=== PATIENT | male | born 1945 | race Caucasian/White ===

== ENCOUNTER → 2024-02-14 06:59 | Outpatient (REF) | payer MEDICARE, OTHER, SELFPAY | LOC: RAD 06:59 | PROVIDERS: ATTENDING PHYSICIAN Internal Medicine Infectious Disease; FAMILY PHYSICIAN Family Medicine Sports Medicine | DX: L02.91 Cutaneous abscess, unspecified (principal) | CPT/HCPCS: 74176 ==

== ENCOUNTER 2024-02-14 07:59 | Outpatient (RCR) | payer MEDICARE, OTHER, SELFPAY ==
[2024-01-17 10:00] VITALS: BP 148/71
[2024-01-17] MEDS: INVANZ 60 MG IV (10:45)
[2024-01-17 10:48] LABS: % Basophils 0.4 % (0-2); % Eosinophils 2.5 % (0-6); % Immature Granulocytes 0.6 % (0-0.5); % Monocytes 6.9 % (1.7-9.3); % Neutrophils 67.6 % (42.2-75.2); Absolute Eosinophils 0.2 10^3/uL (0-0.7); Absolute Immature Granulocytes 0.1 10^3/uL (0-0.05); Absolute Lymphocytes 1.8 10^3/uL (1.2-3.4); Absolute Monocytes 0.6 10^3/uL (0.1-0.6); Absolute Neutrophils 5.6 10^3/uL (1.4-6.5); Hematocrit 28.2 % (39.0-52.0); Hemoglobin 9.2 g/dL (13.0-18.0); Mean Corp Hgb Conc. 32.6 g/dL (33.0-37.0); Mean Corpuscular Hgb 29.9 pg (27.0-31.0); Mean Corpuscular Volume 91.6 fL (80.0-94.0); Mean Platelet Volume 8.9 fL (7.4-10.4); Platelet Count 283 10^3/uL (130-400); Red Blood Cell Count 3.08 10^6/uL (4.70-6.10); Red Cell Dist. Width 14.1 % (11.5-14.5); White Blood Cell Count 8.3 10^3/uL (4.8-10.8)
[2024-01-17] MEDS: CUBICIN 115 MG IV (11:26)
[2024-01-17 11:55] LABS: ALT (SGPT) 29 U/L (0-50); AST (SGOT) 45 U/L (17-59); Albumin 3.5 g/dl (3.5-5.0); Alkaline Phosphatase 117 U/L (38-126); Blood Urea Nitrogen 13 mg/dl (9-20); Carbon Dioxide 24 mmol/L (22-30); Chloride 103 mmol/L (98-107); Creatine Phosphokinase 98 U/L (55-170); Glucose 104 mg/dl (70-99); Potassium 4.1 mmol/L (3.5-5.1); Sodium 135 mmol/L (135-145); Total Bilirubin 0.5 mg/dl (0.2-1.3); eGFR > 60.00
[2024-01-18] MEDS: CUBICIN 115 MG IV (07:55)
[2024-01-18 08:03] VITALS: BP 137/75
[2024-01-18] MEDS: INVANZ 60 MG IV (08:35)
[2024-01-19] MEDS: INVANZ 60 MG IV (08:50)
[2024-01-19 08:56] VITALS: BP 143/79
[2024-01-19] MEDS: CUBICIN 115 MG IV (09:29)
[2024-01-20] MEDS: INVANZ 60 MG IV (07:37)
[2024-01-20 07:42] VITALS: BP 127/75
[2024-01-20] MEDS: CUBICIN 115 MG IV (08:10)
[2024-01-21] MEDS: CUBICIN 115 MG IV (07:23)
[2024-01-21] MEDS: INVANZ 60 MG IV (08:30)
[2024-01-22] MEDS: INVANZ 60 MG IV (11:08)
[2024-01-22 11:14] VITALS: BP 134/72
[2024-01-22] MEDS: CUBICIN 115 MG IV (11:45)
[2024-01-23] MEDS: INVANZ 60 MG IV (08:02)
[2024-01-23 08:07] VITALS: BP 136/84
[2024-01-23] MEDS: CUBICIN 115 MG IV (08:41)
[2024-01-24] MEDS: INVANZ 60 MG IV (09:12)
[2024-01-24 09:16] VITALS: BP 132/77
[2024-01-24 09:21] LABS: % Eosinophils 3.5 % (0-6); % Immature Granulocytes 0.4 % (0-0.5); % Monocytes 7.8 % (1.7-9.3); % Neutrophils 66.3 % (42.2-75.2); Absolute Basophils 0.1 10^3/uL (0-0.2); Absolute Eosinophils 0.3 10^3/uL (0-0.7); Absolute Lymphocytes 1.5 10^3/uL (1.2-3.4); Absolute Monocytes 0.6 10^3/uL (0.1-0.6); Absolute Neutrophils 4.7 10^3/uL (1.4-6.5); Hematocrit 28.8 % (39.0-52.0); Hemoglobin 9.4 g/dL (13.0-18.0); Mean Corp Hgb Conc. 32.6 g/dL (33.0-37.0); Mean Corpuscular Hgb 28.8 pg (27.0-31.0); Mean Corpuscular Volume 88.3 fL (80.0-94.0); Mean Platelet Volume 8.8 fL (7.4-10.4); Nucleated Red Blood Cells % 0 % (-); Platelet Count 234 10^3/uL (130-400); Red Blood Cell Count 3.26 10^6/uL (4.70-6.10); Red Cell Dist. Width 14.2 % (11.5-14.5); White Blood Cell Count 7.1 10^3/uL (4.8-10.8)
[2024-01-24 09:35] LABS: ALT (SGPT) 29 U/L (0-50); AST (SGOT) 63 U/L (17-59); Albumin 3.6 g/dl (3.5-5.0); Alkaline Phosphatase 107 U/L (38-126); Blood Urea Nitrogen 11 mg/dl (9-20); Calcium 9.4 mg/dl (8.4-10.2); Carbon Dioxide 22 mmol/L (22-30); Chloride 105 mmol/L (98-107); Glucose 132 mg/dl (70-99); Potassium 4.2 mmol/L (3.5-5.1); Sodium 138 mmol/L (135-145); Total Bilirubin 0.3 mg/dl (0.2-1.3); Total Protein 7.7 g/dl (6.3-8.2); eGFR > 60.00
[2024-01-24] MEDS: CUBICIN 115 MG IV (09:50)
[2024-01-24 10:11] LABS: Creatine Phosphokinase 185 U/L (55-170)
--- NOTE | 2024-01-24 14:06 | PTCARENOTE ---
Addendum entered by Mena Quintero RN 01/25/24 11:54:
Received call back from Dr. Strauss, agrees with pharmacist evaluation of labs and will continue with antibiotic therapy as directed, weekly labs as ordered.
Addendum entered by Mena Quintero RN 01/25/24 11:26:
1100-Three phone call placed to Dr. Strauss following up on Creatine Kinase level of 185 from 01/24/24. Pharmacist Jake Rossi evaluated lab values , in absence of physician response feels appropriate to proceed with IV antibiotic therapy today.
Pt has less fatigue today, will continue to monitor patient daily for any changes.
Original Note:
1045-CPK level elevated at 185, results called to Dr. Strauss at [facility] by pharmacist Kian Elise. Lab results faxed to office as well.
[2024-01-25 08:46] VITALS: BP 150/88
[2024-01-25] MEDS: INVANZ 60 MG IV (11:15)
[2024-01-25] MEDS: CUBICIN 115 MG IV (11:51)
[2024-01-26] MEDS: INVANZ 60 MG IV (08:42)
[2024-01-26 08:50] VITALS: BP 135/77
[2024-01-26] MEDS: CUBICIN 115 MG IV (09:25)
[2024-01-27 07:28] VITALS: BP 136/85
[2024-01-27] MEDS: CUBICIN 115 MG IV (07:31)
[2024-01-27] MEDS: INVANZ 60 MG IV (08:43)
[2024-01-28 07:45] VITALS: BP 151/77
[2024-01-28] MEDS: INVANZ 60 MG IV (07:46)
[2024-01-28] MEDS: CUBICIN 115 MG IV (08:17)
[2024-01-29 08:30] VITALS: BP 123/79
[2024-01-29] MEDS: INVANZ 60 MG IV (08:53)
[2024-01-29] MEDS: CUBICIN 115 MG IV (09:33)
[2024-01-30] MEDS: INVANZ 60 MG IV (08:57)
[2024-01-30] MEDS: CUBICIN 115 MG IV (09:29)
[2024-01-30 09:52] VITALS: BP 132/91
[2024-01-30 09:57] VITALS: BP 144/80
[2024-01-31 08:58] LABS: % Basophils 0.7 % (0-2); % Eosinophils 5.6 % (0-6); % Immature Granulocytes 0.4 % (0-0.5); % Lymphocytes 25.6 % (20.5-51.1); % Monocytes 8.6 % (1.7-9.3); % Neutrophils 59.1 % (42.2-75.2); Absolute Eosinophils 0.3 10^3/uL (0-0.7); Absolute Lymphocytes 1.4 10^3/uL (1.2-3.4); Absolute Monocytes 0.5 10^3/uL (0.1-0.6); Absolute Neutrophils 3.3 10^3/uL (1.4-6.5); Hematocrit 31.5 % (39.0-52.0); Hemoglobin 10.5 g/dL (13.0-18.0); Mean Corp Hgb Conc. 33.3 g/dL (33.0-37.0); Mean Corpuscular Hgb 29.5 pg (27.0-31.0); Mean Corpuscular Volume 88.5 fL (80.0-94.0); Mean Platelet Volume 8.6 fL (7.4-10.4); Platelet Count 220 10^3/uL (130-400); Red Blood Cell Count 3.56 10^6/uL (4.70-6.10); White Blood Cell Count 5.6 10^3/uL (4.8-10.8)
[2024-01-31 09:02] VITALS: BP 154/97
[2024-01-31 10:07] LABS: ALT (SGPT) 26 U/L (0-50); AST (SGOT) 45 U/L (17-59); Albumin 3.9 g/dl (3.5-5.0); Alkaline Phosphatase 110 U/L (38-126); Blood Urea Nitrogen 14 mg/dl (9-20); Calcium 9.6 mg/dl (8.4-10.2); Carbon Dioxide 25 mmol/L (22-30); Chloride 105 mmol/L (98-107); Creatine Phosphokinase 66 U/L (55-170); Glucose 129 mg/dl (70-99); Potassium 4.1 mmol/L (3.5-5.1); Sodium 139 mmol/L (135-145); Total Bilirubin 0.5 mg/dl (0.2-1.3); Total Protein 7.8 g/dl (6.3-8.2); eGFR > 60.00
[2024-01-31] MEDS: INVANZ 60 MG IV (10:25)
[2024-01-31] MEDS: CUBICIN 115 MG IV (11:06)
[2024-01-31 11:47] VITALS: BP 162/95
[2024-02-01] MEDS: INVANZ 60 MG IV (08:47)
[2024-02-01 09:04] VITALS: BP 138/79
[2024-02-01] MEDS: CUBICIN 115 MG IV (09:26)
[2024-02-02 10:03] VITALS: BP 136/76
[2024-02-02] MEDS: INVANZ 60 MG IV (10:17)
[2024-02-02] MEDS: CUBICIN 115 MG IV (10:53)
[2024-02-03 07:29] VITALS: BP 129/73
[2024-02-03] MEDS: CUBICIN 115 MG IV (07:31)
[2024-02-03] MEDS: INVANZ 60 MG IV (08:07)
[2024-02-04 07:42] VITALS: BP 149/85
[2024-02-04] MEDS: CUBICIN 115 MG IV (07:48)
[2024-02-04] MEDS: INVANZ 60 MG IV (08:07)
[2024-02-05 08:40] VITALS: BP 138/75
[2024-02-05] MEDS: INVANZ 60 MG IV (08:53)
[2024-02-05] MEDS: CUBICIN 115 MG IV (09:28)
[2024-02-06] MEDS: INVANZ 60 MG IV (08:52)
[2024-02-06 08:55] VITALS: BP 149/85
[2024-02-06] MEDS: CUBICIN 115 MG IV (09:30)
[2024-02-07 08:40] VITALS: BP 137/83
[2024-02-07 08:43] LABS: % Eosinophils 7.4 % (0-6); % Immature Granulocytes 0.2 % (0-0.5); % Lymphocytes 28.4 % (20.5-51.1); % Monocytes 8.2 % (1.7-9.3); % Neutrophils 54.8 % (42.2-75.2); Absolute Basophils 0.1 10^3/uL (0-0.2); Absolute Eosinophils 0.4 10^3/uL (0-0.7); Absolute Lymphocytes 1.7 10^3/uL (1.2-3.4); Absolute Monocytes 0.5 10^3/uL (0.1-0.6); Absolute Neutrophils 3.2 10^3/uL (1.4-6.5); Hematocrit 31.7 % (39.0-52.0); Hemoglobin 10.7 g/dL (13.0-18.0); Mean Corp Hgb Conc. 33.8 g/dL (33.0-37.0); Mean Corpuscular Hgb 29.6 pg (27.0-31.0); Mean Corpuscular Volume 87.8 fL (80.0-94.0); Mean Platelet Volume 8.5 fL (7.4-10.4); Platelet Count 225 10^3/uL (130-400); Red Blood Cell Count 3.61 10^6/uL (4.70-6.10); Red Cell Dist. Width 14.2 % (11.5-14.5); White Blood Cell Count 5.8 10^3/uL (4.8-10.8)
[2024-02-07] MEDS: INVANZ 60 MG IV (08:58)
[2024-02-07 09:51] LABS: ALT (SGPT) 27 U/L (0-50); AST (SGOT) 48 U/L (17-59); Albumin 3.8 g/dl (3.5-5.0); Alkaline Phosphatase 105 U/L (38-126); Blood Urea Nitrogen 13 mg/dl (9-20); Calcium 9.5 mg/dl (8.4-10.2); Carbon Dioxide 22 mmol/L (22-30); Chloride 103 mmol/L (98-107); Glucose 132 mg/dl (70-99); Potassium 4.2 mmol/L (3.5-5.1); Sodium 138 mmol/L (135-145); Total Bilirubin 0.2 mg/dl (0.2-1.3); Total Protein 7.6 g/dl (6.3-8.2); eGFR > 60.00
[2024-02-07 09:53] LABS: Creatine Phosphokinase 73 U/L (55-170)
[2024-02-07] MEDS: CUBICIN 115 MG IV (10:18)
[2024-02-08] MEDS: INVANZ 60 MG IV (11:49)
[2024-02-08] MEDS: CUBICIN 115 MG IV (12:26)
[2024-02-08 12:37] VITALS: BP 135/70
[2024-02-09] MEDS: INVANZ 60 MG IV (08:47)
[2024-02-09 08:52] VITALS: BP 140/80
[2024-02-09] MEDS: CUBICIN 115 MG IV (09:24)
[2024-02-10 07:45] VITALS: BP 133/82
[2024-02-10] MEDS: CUBICIN 115 MG IV (07:50)
[2024-02-10] MEDS: INVANZ 60 MG IV (08:29)
[2024-02-10 09:05] VITALS: BP 144/83
[2024-02-11 07:30] VITALS: BP 128/74
[2024-02-11] MEDS: CUBICIN 115 MG IV (07:31)
[2024-02-11] MEDS: INVANZ 60 MG IV (08:11)
[2024-02-12] MEDS: INVANZ 60 MG IV (08:56)
[2024-02-12 09:00] VITALS: BP 152/84
[2024-02-12] MEDS: CUBICIN 115 MG IV (09:32)
[2024-02-13] MEDS: INVANZ 60 MG IV (09:12)
[2024-02-13 09:23] VITALS: BP 149/79
[2024-02-13] MEDS: CUBICIN 115 MG IV (09:52)
[2024-02-14 08:15] VITALS: BP 158/84
[2024-02-14 08:22] LABS: % Basophils 0.5 % (0-2); % Eosinophils 5.2 % (0-6); % Immature Granulocytes 0.3 % (0-0.5); % Lymphocytes 27.7 % (20.5-51.1); % Monocytes 8.3 % (1.7-9.3); Absolute Eosinophils 0.3 10^3/uL (0-0.7); Absolute Lymphocytes 1.6 10^3/uL (1.2-3.4); Absolute Monocytes 0.5 10^3/uL (0.1-0.6); Absolute Neutrophils 3.3 10^3/uL (1.4-6.5); Hematocrit 32.1 % (39.0-52.0); Mean Corp Hgb Conc. 34.3 g/dL (33.0-37.0); Mean Corpuscular Volume 87.5 fL (80.0-94.0); Mean Platelet Volume 8.8 fL (7.4-10.4); Platelet Count 192 10^3/uL (130-400); Red Blood Cell Count 3.67 10^6/uL (4.70-6.10); White Blood Cell Count 5.8 10^3/uL (4.8-10.8)
[2024-02-14 09:33] LABS: ALT (SGPT) 26 U/L (0-50); AST (SGOT) 42 U/L (17-59); Alkaline Phosphatase 104 U/L (38-126); Blood Urea Nitrogen 13 mg/dl (9-20); Calcium 9.6 mg/dl (8.4-10.2); Carbon Dioxide 24 mmol/L (22-30); Chloride 104 mmol/L (98-107); Glucose 109 mg/dl (70-99); Potassium 4.1 mmol/L (3.5-5.1); Sodium 137 mmol/L (135-145); Total Bilirubin 0.3 mg/dl (0.2-1.3); Total Protein 7.6 g/dl (6.3-8.2); eGFR > 60.00
[2024-02-14] MEDS: INVANZ 60 MG IV (09:36)
[2024-02-14 09:52] LABS: Creatine Phosphokinase 64 U/L (55-170)
[2024-02-14] MEDS: CUBICIN 115 MG IV (10:08)
== END 2024-02-14 14:45 | disposition home or self-care (01) ==
LOC: OID 07:59
PROVIDERS: ATTENDING PHYSICIAN Internal Medicine Infectious Disease; PRIMARYCARE PHYSICIAN Family Medicine Sports Medicine
DX: A49.9 Bacterial infection, unspecified (principal); A44.9 Bartonellosis, unspecified (principal); Z16.12 Extended spectrum beta lactamase (ESBL) resistance
CPT/HCPCS: 36591; 80053; 82550; 85025; 86140; 96365; 96367; 96368; J0878; J1335

== ENCOUNTER 2024-02-19 08:19 | Outpatient (RCR) | payer MEDICARE, OTHER, SELFPAY ==
[2024-02-15] MEDS: INVANZ 60 MG IV (08:47)
[2024-02-15 08:56] VITALS: BP 139/76
[2024-02-15] MEDS: CUBICIN 115 MG IV (09:29)
[2024-02-16] MEDS: INVANZ 60 MG IV (08:53)
[2024-02-16 09:01] VITALS: BMI 26.9
[2024-02-16 09:05] VITALS: BP 140/78
[2024-02-16] MEDS: CUBICIN 115 MG IV (09:32)
[2024-02-17 07:35] VITALS: BP 132/81
[2024-02-17] MEDS: INVANZ 60 MG IV (07:39)
[2024-02-17] MEDS: CUBICIN 115 MG IV (08:13)
[2024-02-18] MEDS: INVANZ 60 MG IV (07:30)
[2024-02-18] MEDS: CUBICIN 115 MG IV (08:05)
[2024-02-19] MEDS: INVANZ 60 MG IV (08:55)
[2024-02-19] MEDS: CUBICIN 115 MG IV (09:37)
--- NOTE | 2024-02-19 11:25 | PTCARENOTE ---
1020 IV antibiotic course completed. PICC line discontinued as directed, total of 44cm removed without incident.No bleeding noted. Dressing applied. Instructed patient to leave dressing in place x 24 hours. Monoitor for any redness, swelling or
bleeding. Pt discharged in good condition, accompanied by patients son.
[2024-02-19 11:48] VITALS: BP 137/61
== END 2024-02-19 12:19 | disposition home or self-care (01) ==
LOC: OID 08:19
PROVIDERS: ATTENDING PHYSICIAN Internal Medicine Infectious Disease; PRIMARYCARE PHYSICIAN Family Medicine Sports Medicine
DX: A49.9 Bacterial infection, unspecified (principal); Z16.12 Extended spectrum beta lactamase (ESBL) resistance; A44.9 Bartonellosis, unspecified
CPT/HCPCS: 36589; 96365; 96367; J0878; J1335

== ENCOUNTER → 2024-03-12 09:02 | Outpatient (REF) | payer MEDICARE, OTHER, SELFPAY ==
[2024-03-12 09:57] LABS: % Basophils 0.9 % (0-2); % Eosinophils 4.5 % (0-6); % Immature Granulocytes 0.4 % (0-0.5); % Lymphocytes 36.8 % (20.5-51.1); % Monocytes 9.4 % (1.7-9.3); Absolute Basophils 0.1 10^3/uL (0-0.2); Absolute Eosinophils 0.2 10^3/uL (0-0.7); Absolute Monocytes 0.5 10^3/uL (0.1-0.6); Absolute Neutrophils 2.6 10^3/uL (1.4-6.5); Hematocrit 36.5 % (39.0-52.0); Hemoglobin 12.7 g/dL (13.0-18.0); Mean Corp Hgb Conc. 34.8 g/dL (33.0-37.0); Mean Corpuscular Hgb 29.5 pg (27.0-31.0); Mean Corpuscular Volume 84.9 fL (80.0-94.0); Mean Platelet Volume 8.9 fL (7.4-10.4); Nucleated Red Blood Cells % 0 % (-); Platelet Count 159 10^3/uL (130-400); Red Cell Dist. Width 14.6 % (11.5-14.5); Reticulocyte Count 0.8 % (0.4-2.8); White Blood Cell Count 5.3 10^3/uL (4.8-10.8)
[2024-03-12 11:02] LABS: ALT (SGPT) 24 U/L (0-50); AST (SGOT) 33 U/L (17-59); Albumin 4.4 g/dl (3.5-5.0); Alkaline Phosphatase 107 U/L (38-126); Blood Urea Nitrogen 20 mg/dl (9-20); Calcium 10.6 mg/dl (8.4-10.2); Carbon Dioxide 25 mmol/L (22-30); Chloride 100 mmol/L (98-107); Direct Bilirubin 0.3 mg/dl (0.0-0.4); Glucose 137 mg/dl (70-99); Iron 100 ug/dl (49-181); Potassium 4.5 mmol/L (3.5-5.1); Sodium 140 mmol/L (135-145); Total Bilirubin 0.6 mg/dl (0.2-1.3); Total Protein 7.6 g/dl (6.3-8.2); eGFR > 60.00
[2024-03-12 11:11] LABS: Percent Saturation 39 % (20-50); Total Iron Binding Capacity 255 ug/dl (261-462)
[2024-03-12 11:33] LABS: PSA, Total - Diagnostic 2.95 ng/ml (0.0-4.0)
[2024-03-12 12:09] LABS: Folate 7.5 ng/ml (2.76-20); Vitamin B12 385 pg/ml (239-931)
[2024-03-14 15:56] LABS: Erythropoietin (EPO) 7 mU/mL (4-27)
== END ==
LOC: REG 09:02
PROVIDERS: ATTENDING PHYSICIAN Internal Medicine Hematology & Oncology; FAMILY PHYSICIAN Family Medicine Sports Medicine
DX: C61 Malignant neoplasm of prostate (principal); D64.9 Anemia, unspecified; D51.9 Vitamin B12 deficiency anemia, unspecified; D51.8 Other vitamin B12 deficiency anemias
CPT/HCPCS: 36415; 80053; 82248; 82607; 82668; 82728; 82746; 83540; 83550; 84153; 85025; 85045

== ENCOUNTER → 2024-05-21 09:14 | Outpatient (REF) | payer MEDICARE, OTHER, SELFPAY ==
[2024-05-21 12:59] LABS: Blood Urea Nitrogen 21 mg/dl (9-20)
== END ==
LOC: HWLAB 09:14
PROVIDERS: ATTENDING PHYSICIAN Ophthalmology; FAMILY PHYSICIAN Family Medicine Sports Medicine
DX: H53.483 Generalized contraction of visual field, bilateral (principal)
CPT/HCPCS: 36415; 82565; 84520; 84590

== ENCOUNTER → 2024-06-06 09:29 | Outpatient (REF) | payer MEDICARE, OTHER, SELFPAY ==
[2024-06-06 12:24] LABS: % Eosinophils 6.5 % (0-6); % Immature Granulocytes 0.2 % (0-0.5); % Lymphocytes 35.3 % (20.5-51.1); Absolute Basophils 0.1 10^3/uL (0-0.2); Absolute Eosinophils 0.3 10^3/uL (0-0.7); Absolute Lymphocytes 1.7 10^3/uL (1.2-3.4); Absolute Monocytes 0.4 10^3/uL (0.1-0.6); Absolute Neutrophils 2.4 10^3/uL (1.4-6.5); Hematocrit 36.9 % (39.0-52.0); Hemoglobin 12.2 g/dL (13.0-18.0); Mean Corp Hgb Conc. 33.1 g/dL (33.0-37.0); Mean Corpuscular Hgb 31.8 pg (27.0-31.0); Mean Corpuscular Volume 96.1 fL (80.0-94.0); Mean Platelet Volume 9.4 fL (7.4-10.4); Nucleated Red Blood Cells % 0 % (-); Platelet Count 142 10^3/uL (130-400); Red Blood Cell Count 3.84 10^6/uL (4.70-6.10); Red Cell Dist. Width 13.9 % (11.5-14.5); White Blood Cell Count 4.9 10^3/uL (4.8-10.8)
[2024-06-06 13:07] LABS: ALT (SGPT) 32 U/L (0-50); AST (SGOT) 32 U/L (17-59); Albumin 4.1 g/dl (3.5-5.0); Alkaline Phosphatase 77 U/L (38-126); Blood Urea Nitrogen 24 mg/dl (9-20); Calcium 9.4 mg/dl (8.4-10.2); Carbon Dioxide 27 mmol/L (22-30); Chloride 101 mmol/L (98-107); Glucose 198 mg/dl (70-99); Potassium 4.3 mmol/L (3.5-5.1); Sodium 140 mmol/L (135-145); Total Bilirubin 0.5 mg/dl (0.2-1.3); Total Protein 6.6 g/dl (6.3-8.2); eGFR > 60.00
[2024-06-06 13:28] LABS: PSA, Total - Diagnostic 1.22 ng/ml (0.0-4.0)
[2024-06-06 16:13] LABS: Folate > 20.0 ng/ml (2.76-20); Vitamin B12 490 pg/ml (239-931)
== END ==
LOC: REG 09:29
PROVIDERS: ATTENDING PHYSICIAN Internal Medicine Hematology & Oncology; FAMILY PHYSICIAN Family Medicine Sports Medicine
DX: C61 Malignant neoplasm of prostate (principal); D64.9 Anemia, unspecified; R26.89 Other abnormalities of gait and mobility; C79.51 Secondary malignant neoplasm of bone
CPT/HCPCS: 36415; 80053; 82607; 82746; 84153; 85025

== ENCOUNTER → 2024-08-27 08:45 | Outpatient (REF) | payer MEDICARE, OTHER, SELFPAY ==
[2024-08-27 12:06] LABS: % Basophils 0.8 % (0-2); % Eosinophils 5.4 % (0-6); % Immature Granulocytes 0.1 % (0-0.5); % Lymphocytes 34.6 % (20.5-51.1); % Monocytes 10.3 % (1.7-9.3); % Neutrophils 48.8 % (42.2-75.2); Absolute Basophils 0.1 10^3/uL (0-0.2); Absolute Eosinophils 0.4 10^3/uL (0-0.7); Absolute Lymphocytes 2.6 10^3/uL (1.2-3.4); Absolute Monocytes 0.8 10^3/uL (0.1-0.6); Absolute Neutrophils 3.7 10^3/uL (1.4-6.5); Hematocrit 37.7 % (39.0-52.0); Hemoglobin 13.3 g/dL (13.0-18.0); Mean Corp Hgb Conc. 35.3 g/dL (33.0-37.0); Mean Corpuscular Hgb 32.5 pg (27.0-31.0); Mean Corpuscular Volume 92.2 fL (80.0-94.0); Mean Platelet Volume 9.1 fL (7.4-10.4); Nucleated Red Blood Cells % 0 % (-); Platelet Count 165 10^3/uL (130-400); Red Blood Cell Count 4.09 10^6/uL (4.70-6.10); Red Cell Dist. Width 13.1 % (11.5-14.5); White Blood Cell Count 7.6 10^3/uL (4.8-10.8)
[2024-08-27 12:16] LABS: ALT (SGPT) 36 U/L (0-50); AST (SGOT) 44 U/L (17-59); Albumin 4.3 g/dl (3.5-5.0); Alkaline Phosphatase 100 U/L (38-126); Blood Urea Nitrogen 29 mg/dl (9-20); Calcium 9.6 mg/dl (8.4-10.2); Carbon Dioxide 26 mmol/L (22-30); Chloride 104 mmol/L (98-107); Glucose 97 mg/dl (70-99); Sodium 140 mmol/L (135-145); Total Bilirubin 0.5 mg/dl (0.2-1.3); Total Protein 7.2 g/dl (6.3-8.2); eGFR > 60.00
[2024-08-27 12:49] LABS: PSA, Total - Diagnostic 1.73 ng/ml (0.0-4.0)
== END ==
LOC: HWLAB 08:45
PROVIDERS: ATTENDING PHYSICIAN Internal Medicine Hematology & Oncology; FAMILY PHYSICIAN Family Medicine Sports Medicine
DX: C61 Malignant neoplasm of prostate (principal); D64.9 Anemia, unspecified; R26.89 Other abnormalities of gait and mobility; C79.51 Secondary malignant neoplasm of bone
CPT/HCPCS: 36415; 80053; 84153; 85025

== ENCOUNTER → 2024-09-27 12:09 | Outpatient (REF) | payer MEDICARE, OTHER, SELFPAY ==
[2024-09-27 16:31] LABS: % Basophils 0.9 % (0-2); % Eosinophils 6.5 % (0-6); % Immature Granulocytes 0.2 % (0-0.5); % Lymphocytes 45.3 % (20.5-51.1); % Monocytes 7.6 % (1.7-9.3); % Neutrophils 39.5 % (42.2-75.2); Absolute Basophils 0.1 10^3/uL (0-0.2); Absolute Eosinophils 0.4 10^3/uL (0-0.7); Absolute Monocytes 0.5 10^3/uL (0.1-0.6); Absolute Neutrophils 2.6 10^3/uL (1.4-6.5); Hematocrit 38.3 % (39.0-52.0); Hemoglobin 12.9 g/dL (13.0-18.0); Mean Corp Hgb Conc. 33.7 g/dL (33.0-37.0); Mean Corpuscular Hgb 31.3 pg (27.0-31.0); Mean Platelet Volume 8.9 fL (7.4-10.4); Nucleated Red Blood Cells % 0 % (-); Platelet Count 211 10^3/uL (130-400); Red Blood Cell Count 4.12 10^6/uL (4.70-6.10); Red Cell Dist. Width 13.2 % (11.5-14.5); White Blood Cell Count 6.6 10^3/uL (4.8-10.8)
[2024-09-27 16:46] LABS: ALT (SGPT) 26 U/L (0-50); AST (SGOT) 31 U/L (17-59); Albumin 4.6 g/dl (3.5-5.0); Alkaline Phosphatase 92 U/L (38-126); Blood Urea Nitrogen 17 mg/dl (9-20); Calcium 9.9 mg/dl (8.4-10.2); Carbon Dioxide 24 mmol/L (22-30); Chloride 101 mmol/L (98-107); Direct Bilirubin 0.2 mg/dl (0.0-0.4); Glucose 139 mg/dl (70-99); Potassium 4.1 mmol/L (3.5-5.1); Sodium 138 mmol/L (135-145); Total Bilirubin 0.8 mg/dl (0.2-1.3); Total Protein 7.6 g/dl (6.3-8.2); eGFR > 60.00
== END ==
LOC: HWLAB 12:09
PROVIDERS: ATTENDING PHYSICIAN Internal Medicine Hematology & Oncology; FAMILY PHYSICIAN Family Medicine Sports Medicine
DX: C61 Malignant neoplasm of prostate (principal); D64.9 Anemia, unspecified; R26.89 Other abnormalities of gait and mobility; C79.51 Secondary malignant neoplasm of bone
CPT/HCPCS: 36415; 80048; 80076; 85025

== ENCOUNTER → 2024-11-19 09:39 | Outpatient (REF) | payer MEDICARE, OTHER, SELFPAY ==
[2024-11-19 11:26] LABS: % Basophils 0.9 % (0-2); % Eosinophils 8.5 % (0-6); % Immature Granulocytes 0.3 % (0-0.5); % Lymphocytes 34.3 % (20.5-51.1); % Monocytes 8.9 % (1.7-9.3); % Neutrophils 47.1 % (42.2-75.2); Absolute Basophils 0.1 10^3/uL (0-0.2); Absolute Eosinophils 0.5 10^3/uL (0-0.7); Absolute Monocytes 0.5 10^3/uL (0.1-0.6); Absolute Neutrophils 2.8 10^3/uL (1.4-6.5); Hematocrit 35.3 % (39.0-52.0); Hemoglobin 12.3 g/dL (13.0-18.0); Mean Corp Hgb Conc. 34.8 g/dL (33.0-37.0); Mean Corpuscular Hgb 32.2 pg (27.0-31.0); Mean Corpuscular Volume 92.4 fL (80.0-94.0); Mean Platelet Volume 9.4 fL (7.4-10.4); Nucleated Red Blood Cells % 0 % (-); Platelet Count 144 10^3/uL (130-400); Red Blood Cell Count 3.82 10^6/uL (4.70-6.10); Red Cell Dist. Width 13.5 % (11.5-14.5); White Blood Cell Count 5.9 10^3/uL (4.8-10.8)
[2024-11-19 11:42] LABS: ALT (SGPT) 23 U/L (0-50); AST (SGOT) 27 U/L (17-59); Albumin 4.6 g/dl (3.5-5.0); Alkaline Phosphatase 74 U/L (38-126); Blood Urea Nitrogen 22 mg/dl (9-20); Calcium 9.7 mg/dl (8.4-10.2); Carbon Dioxide 24 mmol/L (22-30); Chloride 104 mmol/L (98-107); Glucose 147 mg/dl (70-99); Potassium 4.3 mmol/L (3.5-5.1); Sodium 141 mmol/L (135-145); Total Bilirubin 0.7 mg/dl (0.2-1.3); Total Protein 7.1 g/dl (6.3-8.2); eGFR > 60.00
== END ==
LOC: HWLAB 09:39
PROVIDERS: ATTENDING PHYSICIAN Internal Medicine Hematology & Oncology; FAMILY PHYSICIAN Family Medicine Sports Medicine
DX: C61 Malignant neoplasm of prostate (principal); D64.9 Anemia, unspecified; R26.89 Other abnormalities of gait and mobility; C79.51 Secondary malignant neoplasm of bone
CPT/HCPCS: 36415; 80053; 84153; 85025

== ENCOUNTER → 2024-12-16 11:16 | Outpatient (REF) | payer MEDICARE, OTHER, SELFPAY ==
[2024-12-16 13:53] LABS: ALT (SGPT) 28 U/L (0-50); AST (SGOT) 32 U/L (17-59); Albumin 4.9 g/dl (3.5-5.0); Alkaline Phosphatase 83 U/L (38-126); Blood Urea Nitrogen 23 mg/dl (9-20); Calcium 9.9 mg/dl (8.4-10.2); Carbon Dioxide 24 mmol/L (22-30); Chloride 108 mmol/L (98-107); Glucose 129 mg/dl (70-99); Potassium 4.3 mmol/L (3.5-5.1); Sodium 142 mmol/L (135-145); Total Bilirubin 0.8 mg/dl (0.2-1.3); Total Protein 7.7 g/dl (6.3-8.2); eGFR > 60.00
== END ==
LOC: HWLAB 11:16
PROVIDERS: ATTENDING PHYSICIAN Nurse Practitioner Adult Health; FAMILY PHYSICIAN Family Medicine Sports Medicine
DX: C61 Malignant neoplasm of prostate (principal); D64.9 Anemia, unspecified; R26.89 Other abnormalities of gait and mobility; C79.51 Secondary malignant neoplasm of bone
CPT/HCPCS: 36415; 80053; 84153

== ENCOUNTER → 2025-01-20 09:13 | Outpatient (REF) | payer MEDICARE, OTHER, SELFPAY ==
[2025-01-20 12:12] LABS: Hematocrit 37.7 % (39.0-52.0); Hemoglobin 12.9 g/dL (13.0-18.0); Mean Corp Hgb Conc. 34.2 g/dL (33.0-37.0); Mean Corpuscular Volume 92.2 fL (80.0-94.0); Nucleated Red Blood Cells % 0 % (-); Platelet Count 199 10^3/uL (130-400); Red Cell Dist. Width 12.8 % (11.5-14.5)
[2025-01-20 14:26] LABS: PSA, Total - Diagnostic 8.82 ng/ml (0.0-4.0)
[2025-01-20 14:28] LABS: ALT (SGPT) 23 U/L (0-50); AST (SGOT) 30 U/L (17-59); Albumin 4.5 g/dl (3.5-5.0); Alkaline Phosphatase 87 U/L (38-126); Blood Urea Nitrogen 22 mg/dl (9-20); Calcium 10.1 mg/dl (8.4-10.2); Carbon Dioxide 24 mmol/L (22-30); Chloride 108 mmol/L (98-107); Glucose 203 mg/dl (70-99); Potassium 4.3 mmol/L (3.5-5.1); Sodium 139 mmol/L (135-145); Total Protein 7.3 g/dl (6.3-8.2); eGFR > 60.00
== END ==
LOC: HWRAD 09:13
PROVIDERS: ATTENDING PHYSICIAN Internal Medicine Hematology & Oncology; FAMILY PHYSICIAN Family Medicine Sports Medicine; REFERRING PHYSICIAN Nurse Practitioner Adult Health
DX: C61 Malignant neoplasm of prostate (principal); D64.9 Anemia, unspecified; R26.89 Other abnormalities of gait and mobility; C79.51 Secondary malignant neoplasm of bone
CPT/HCPCS: 36415; 73200; 80053; 82248; 84153; 85025

== ENCOUNTER → 2025-02-24 12:31 | Outpatient (REF) | payer MEDICARE, OTHER, SELFPAY ==
[2025-02-24 16:09] LABS: ALT (SGPT) 20 U/L (0-50); AST (SGOT) 26 U/L (17-59); Albumin 4.5 g/dl (3.5-5.0); Alkaline Phosphatase 98 U/L (38-126); Blood Urea Nitrogen 26 mg/dl (9-20); Calcium 9.8 mg/dl (8.4-10.2); Carbon Dioxide 25 mmol/L (22-30); Chloride 105 mmol/L (98-107); Glucose 106 mg/dl (70-99); Hematocrit 38.5 % (39.0-52.0); Hemoglobin 12.9 g/dL (13.0-18.0); Mean Corp Hgb Conc. 33.5 g/dL (33.0-37.0); Mean Corpuscular Volume 94.4 fL (80.0-94.0); Nucleated Red Blood Cells % 0 % (-); Platelet Count 186 10^3/uL (130-400); Potassium 4.8 mmol/L (3.5-5.1); Red Cell Dist. Width 12.6 % (11.5-14.5); Sodium 138 mmol/L (135-145); Total Protein 7.3 g/dl (6.3-8.2); eGFR > 60.00
[2025-02-24 16:50] LABS: PSA, Total - Diagnostic 11.20 ng/ml (0.0-4.0)
== END ==
LOC: HWLAB 12:31
PROVIDERS: ATTENDING PHYSICIAN Internal Medicine Hematology & Oncology; FAMILY PHYSICIAN Family Medicine Sports Medicine
DX: C61 Malignant neoplasm of prostate (principal); D64.9 Anemia, unspecified; R26.89 Other abnormalities of gait and mobility; C79.51 Secondary malignant neoplasm of bone
CPT/HCPCS: 36415; 80053; 84153; 85025

== ENCOUNTER → 2025-03-13 18:36 | Outpatient (REF) | payer MEDICARE, OTHER, SELFPAY | LOC: MRI 18:36 | PROVIDERS: ATTENDING PHYSICIAN Internal Medicine Hematology & Oncology; FAMILY PHYSICIAN Family Medicine Sports Medicine | DX: C61 Malignant neoplasm of prostate (principal); D64.9 Anemia, unspecified; R26.89 Other abnormalities of gait and mobility | CPT/HCPCS: 72157; A9575 ==